=== PATIENT | female | born 1990 | race African-American/Black ===

== ENCOUNTER 2016-09-21 00:14 | Emergency (ER) | payer OTHER ==
[~2016-09-21] VITALS: Ht 157.5 cm; Wt 97.5 kg
[2016-09-21 00:25] VITALS: BP 142/93
[2016-09-21 01:13] LABS: ABSOLUTE NEUTROPHILS 6.4 thou/uL (1.4-8.2); BASOPHILS 0.7 % (0.0-2.0); EOSINOPHILS 2.5 % (0.0-3.0); HEMATOCRIT 33.7 % (37.0-47.0); HEMOGLOBIN 11.2 gm/dL (12.0-15.0); LYMPHOCYTES 25.8 % (24.0-44.0); MANUAL DIFF NO; MCH 28.9 pg (26.0-34.0); MCHC 33.2 g/dL (28.0-37.0); MCV 87.2 fL (80.0-100.0); MONOCYTES 10.6 % (1.0-8.0); PLATELET COUNT 249 thou/uL (150-400); POLYS 60.4 % (36.0-66.0); RBC 3.86 mil/uL (4.20-5.00); RDW 14.1 % (10.5-14.5); WBC 10.7 thou/uL (4.0-11.0)
[2016-09-21 01:19] LABS: CALCIUM 8.4 mg/dL (8.5-10.1); CREATININE 0.6 mg/dL (0.6-1.0); POTASSIUM 3.8 mmol/L (3.5-5.1)
== END 2016-09-21 01:16 | disposition short-term general hospital (02) ==
LOC: ER 00:14
PROVIDERS: Emergency Medicine
DX: O45.93 Premature separation of placenta, unspecified, third trimester (principal); Z3A.29 29 weeks gestation of pregnancy